=== PATIENT | male | born 1970 | race Hispanic/Latino ===

== ENCOUNTER 2019-07-20 15:00 | Inpatient (IN) | payer OTHER ==
[~2019-07-20] VITALS: Ht 179.1 cm; Wt 92.8 kg
[2020-02-04 16:22] LABS: BASOPHILS % (AUTO) 0.6 % (0.0-5.0); EOSINOPHILS % (AUTO) 2.5 % (0.0-8.0); HEMATOCRIT 37.2 % (42-54); LYMPHOCYTES % (AUTO) 27.7 % (21.0-51.0); MEAN CORPUSCULAR HEMOGLOBIN 30.7 pg (27.0-33.0); MEAN CORPUSCULAR VOLUME 95.9 fL (79-99); MONOCYTES % (AUTO) 9.2 % (3.0-13.0); NEUTROPHILS % (AUTO) 58.5 % (40.0-77.0); PLATELET COUNT (AUTO) 307 K/uL (130-400); RED BLOOD CELL COUNT(AUTO) 3.88 MIL/uL (4.50-6.20); RED CELL DISTRIBUTION WIDTH 14.3 % (11.0-15.5); WHITE BLOOD COUNT (AUTO) 7.2 K/uL (4.8-10.8)
[2020-02-04 16:33] LABS: CREATININE 1.2 mg/dL (0.5-1.5); INR 0.89 (0.85-1.15); POTASSIUM 4.7 mmol/L (3.5-5.1); PROTHROMBIN TIME 9.7 SEC (9.6-11.6)
[2020-02-04 16:41] LABS: APPEARANCE,URINE Clear (CLEAR); BILIRUBIN,URINE Negative (NEGATIVE); COLOR,URINE Yellow (YELLOW); GLUCOSE, URINE (UA) >=1000 mg/dL (NEGATIVE); KETONES,URINE Trace mg/dL (NEGATIVE); LEUKOCYTE ESTERASE ,URINE Negative (NEGATIVE); NITRATE,URINE Negative (NEGATIVE); OCCULT BLOOD,URINE Negative (NEGATIVE); PH,URINE 5.5 (5.0-8.0); PROTEIN,URINE Trace mg/dL (NEGATIVE)
[2020-02-04 16:53] LABS: BACTERIA,URINE Few /HPF (None Seen); MUCUS,URINE Few LPF (None Seen); SQUAMOUS EPITHELIAL CELL,UR 0-2 /HPF (0-2)
--- NOTE | 2020-02-08 12:30 | NUR ---
PATIENTS HEART RATE ON PRE-REGISTRATION 02/04/2020 WAS 111, TODAY HE STATED HE RAN OUT OF HIS PROPRANOLOL, INSTRUCTIONS FOR PATIENT TO GET MILDRED AND TAKE NOW DUE TO ELEVATED HEART RATE, PATIENT VERBALIZED UNDERSTANDING AND STATED HE WILL GO GET HIS PROPRANOLOL NOW AND TAKE IT
[2020-02-08 12:32] VITALS: BP 122/82
[2020-02-08] MEDS ORDERED: LISI40TA4 PO (12:43)
[2020-02-08] MEDS ORDERED: ATOR-2 PO (12:43)
[2020-02-08] MEDS ORDERED: METF750T46 PO (12:43)
[2020-02-08] MEDS ORDERED: INSU100V12 SQ (12:43)
--- NOTE | 2020-02-08 13:16 | NUR ---
RE: ABNORMAL UA INFORMED DR ASTORGA REGARDING ABNORMAL URINALYSIS, UWBC 2-5 AND ULEUKEST NEGATIVE. NO NEW ORDERS, PER DR ASTORGA OK TO PROCEED WITH SURGERY.
--- NOTE | 2020-02-08 15:00 | NUR ---
PATIENT CALLED BACK, STATED TO ME "I RECEIVED MY PROPRANOLOL AND TOOK IT A LITTLE WHILE AGO". HE STATED HE WILL BRING IN HIS MEDICATION BOTTLES IN THE MORNING
[2020-02-08] MEDS ORDERED: PROP20TA7 PO (15:02)
[2020-02-09] VITALS (22 sets, daily range): BP systolic 107–167; BP diastolic 66–87
[2020-02-09] MEDS: CEFAZOLIN SODIUM 1 GM VIAL IVP SCH ×3 (09:00→22:28)
[2020-02-09] MEDS ORDERED: SODIUM CHLORIDE 0.9% 1000ML 1,000 ML IV ONE (09:14)
--- NOTE | 2020-02-09 09:54 | NUR ---
POTENTIAL FOR INFECTION: CLIPPED LEFT HIP, LEFT GROIN AREA AND LEFT UPPER THIGH PER JEANNETTE ALVAREZ, FOLLOWED BY WIPING WITH CL[place]ON: 2% CHLORHEXIDINE GLUCONATE CLOTH PATIENTS PRE-OP SKIN PREP.
[2020-02-09] MEDS ORDERED: KETOROLAC TROMETHAMINE 15MG/ML ONE (12:08)
[2020-02-09] MEDS ORDERED: CELECOXIB 200 MG CAP ONE (12:08)
[2020-02-09] MEDS ORDERED: METOCLOPRAMIDE 10 MG/2 ML VIAL ONE (12:08)
[2020-02-09] MEDS ORDERED: ACETAMINOPHEN EXTRA STRENGTH 500 MG TABLET ONE (12:08)
[2020-02-09] MEDS ORDERED: CEFAZOLIN SODIUM 1 GM VIAL ONE (13:18)
[2020-02-09] MEDS ORDERED: LIDOCAINE PF 2% 5ML ABBOJECT ONE (13:23)
[2020-02-09] MEDS ORDERED: ONDANSETRON HCL 4 MG/2 ML VIAL ONE (13:23)
[2020-02-09] MEDS ORDERED: DEXAMETHASONE SOD PHOSPHATE 10MG/ML 1ML VIAL ONE (13:23)
[2020-02-09] MEDS ORDERED: PROPOFOL 10 MG/ML 20ML VIAL IV ONE (13:24)
[2020-02-09] MEDS ORDERED: ROCURONIUM 10MG/1ML SYR 10 MG/ML ML ONE ×4 (13:24→17:09)
[2020-02-09] MEDS ORDERED: MIDAZOLAM HCL 1 MG/ML 2ML VIAL ONE (13:24)
[2020-02-09] MEDS ORDERED: FENTANYL CITRATE PF 50 MCG/1 ML 2ML VIAL ONE (13:24)
[2020-02-09] MEDS ORDERED: TRANEXAMIC ACID 1000MG/10ML ONE (13:33)
[2020-02-09] MEDS ORDERED: ROPIVACAINE 0.5% 5MG/ML 30ML IJ ONE (14:21)
[2020-02-09] MEDS ORDERED: CEFAZOLIN SODIUM 1 GM VIAL IRRIG ONE (15:30)
[2020-02-09] MEDS ORDERED: PHENYLEPHRINE HCL 10 MG/ML 1ML VIAL IV ONE (16:55)
[2020-02-09] MEDS ORDERED: ALBUMIN (HUMAN) 5% 250 ML IV ONE (17:50)
[2020-02-09] MEDS ORDERED: POTASSIUM CHLORIDE 20 MEQ ERTAB PO PRN (18:00)
[2020-02-09] MEDS ORDERED: LIDOCAINE HCL-MPF 1% 2ML VIAL IV PRN (18:00)
[2020-02-09] MEDS ORDERED: CALCIUM CARBONATE 500 MG TABLET PO PRN (18:00)
[2020-02-09] MEDS ORDERED: ONDANSETRON HCL 4 MG/2 ML VIAL IVP PRN (18:00)
[2020-02-09] MEDS ORDERED: DiphenhydrAMINE HCL 50 MG/ML VIAL IVP PRN (18:00)
[2020-02-09] MEDS ORDERED: POTASSIUM CHLORIDE 10% ELIXIR 20 MEQ/15 ML UDCUP PO PRN (18:00)
[2020-02-09] MEDS ORDERED: POTASSIUM CHLORIDE 20MEQ/100ML 100 ML IV PRN (18:00)
[2020-02-09] MEDS ORDERED: FERROUS FUMARATE 324 MG TABLET PO PRN (18:00)
[2020-02-09] MEDS ORDERED: MEPERIDINE-PF 25 MG/ML SYG ONE (18:46)
[2020-02-09] MEDS ORDERED: MORPHINE SULFATE 2 MG/ML 1ML SYG ONE (19:06)
[2020-02-09] MEDS: KETOROLAC TROMETHAMINE 15MG/ML IV PRN (19:23)
[2020-02-09] MEDS: ACETAMINOPHEN EXTRA STRENGTH 500 MG TABLET PO SCH (19:42)
[2020-02-09] MEDS: OXYCODONE HCL 5 MG TAB PO PRN (19:43)
[2020-02-09] MEDS: PREGABALIN 25 MG CAP PO SCH (19:43)
[2020-02-09] MEDS: CELECOXIB 200 MG CAP PO SCH (19:43)
[2020-02-09] MEDS: FAMOTIDINE 20MG TAB 20 MG TAB PO SCH (19:43)
[2020-02-09] MEDS: ASPIRIN 81MG TAB.CHEW PO SCH (19:45)
[2020-02-09] MEDS: SODIUM CHLORIDE 0.9% 1000ML 1,000 ML IV SCH (19:51)
[2020-02-09] MEDS: ATORVASTATIN CALCIUM 40 MG TABLET PO SCH (21:00)
[2020-02-09] MEDS: PROPRANOLOL HCL 20 MG TAB PO SCH (21:00)
[2020-02-09] MEDS ORDERED: HYDROMORPHONE 1 MG/1 ML AMP ONE (22:24)
[2020-02-09] MEDS: TEMAZEPAM 15 MG CAPSULE PO PRN (22:28)
[2020-02-09] MEDS: HYDROMORPHONE HCL 2 MG/ML VIAL IVP PRN (23:42)
[2020-02-10] VITALS (7 sets, daily range): BP systolic 108–141; BP diastolic 70–92
[2020-02-10] MEDS: OXYCODONE HCL 5 MG TAB PO PRN ×4 (00:57→23:50)
[2020-02-10] MEDS: HYDROMORPHONE HCL 2 MG/ML VIAL IVP PRN ×3 (01:32→05:34)
[2020-02-10] MEDS: ACETAMINOPHEN EXTRA STRENGTH 500 MG TABLET PO SCH ×3 (01:33→18:36)
--- NOTE | 2020-02-10 02:02 | NUR ---
DANGLE PATIENT WAS ASSISTED TO EDGE OF BED TO DANGLE HIS LEGS PER PROTOCOL. PATIENT TOLERATED WELL AND WAS RETURNED TO BED.
[2020-02-10] MEDS: SODIUM CHLORIDE 0.9% 1000ML 1,000 ML IV SCH ×2 (03:30→15:32)
[2020-02-10 04:07] LABS: HEMATOCRIT 26.2 % (42-54); MEAN CORPUSCULAR HEMOGLOBIN 30.6 pg (27.0-33.0); MEAN CORPUSCULAR HGB CONC 31.7 g/dL (32.0-36.0); MEAN CORPUSCULAR VOLUME 96.7 fL (79-99); RED BLOOD CELL COUNT(AUTO) 2.71 MIL/uL (4.50-6.20); RED CELL DISTRIBUTION WIDTH 13.6 % (11.0-15.5); WHITE BLOOD COUNT (AUTO) 10.1 K/uL (4.8-10.8)
[2020-02-10 04:20] LABS: CREATININE 1.2 mg/dL (0.5-1.5); POTASSIUM 4.6 mmol/L (3.5-5.1)
[2020-02-10] MEDS: INSULIN HUMULIN R 100 UNIT/ML 3ML SQ SCH ×4 (05:22→21:00)
[2020-02-10] MEDS: CEFAZOLIN SODIUM 1 GM VIAL IVP SCH (06:50)
[2020-02-10] MEDS: METFORMIN HCL PO SCH ×2 (07:30→16:30)
[2020-02-10] MEDS: KETOROLAC TROMETHAMINE 15MG/ML IV PRN (07:39)
[2020-02-10] MEDS: INSULIN GLARGINE 100 UNITS/ML 10 ML VIAL SQ SCH ×2 (07:45→16:55)
[2020-02-10] MEDS ORDERED: METF-444 PO (07:54)
[2020-02-10] MEDS ORDERED: HYDROMORPHONE PCA 10 MG/50 ML 50 ML IV PRN (08:15)
[2020-02-10] MEDS ORDERED: NALOXONE HCL 0.4 MG/1 ML ML IVP PRN (08:15)
[2020-02-10] MEDS: ASPIRIN 81MG TAB.CHEW PO SCH ×2 (08:21→20:14)
[2020-02-10] MEDS: FAMOTIDINE 20MG TAB 20 MG TAB PO SCH ×2 (08:21→20:13)
[2020-02-10] MEDS: POLYETHYLENE GLYCOL 3350 17 GM POWD.PACK PO SCH (08:22)
[2020-02-10] MEDS: LISINOPRIL 40 MG TABLET PO SCH (08:23)
[2020-02-10] MEDS: PREGABALIN 25 MG CAP PO SCH ×2 (08:23→20:13)
[2020-02-10] MEDS: CELECOXIB 200 MG CAP PO SCH ×2 (08:24→20:13)
[2020-02-10] MEDS: PROPRANOLOL HCL 20 MG TAB PO SCH ×2 (08:24→20:13)
[2020-02-10] MEDS: TAMSULOSIN HCL 0.4 MG CAP.ER.24H PO SCH (08:24)
--- NOTE | 2020-02-10 11:34 | NUR ---
DC PLAN VISITED WITH PATIENT. PATIENT LIVES WITH SPOUSE. INDEPENDENT ABLE TO PERFORM ADL'S. PATIENT HAS NO SERVICES OR DME'S. FEELS SAFE TO RETURN HOME. PER PATIENT WILL LIKELY STAY WITH DAD IF HE CANT AT HOME. EXPLAINED MD RECOMMENDATIONS FOR HOME HEALTH AND DME. EXPLAINED THAT [facility] [employer]. VERBALIZED UNDERSTANDING AND GAVE PERMISSION TO SPEAK WITH [facility]. CALLED [facility] FAXED PER BK HYLTON RECEIVED. Addendum: 02/10/20 at 1136 by NATA MACKENZIE RN Amended: Links added.
[2020-02-10] MEDS: TRAMADOL HCL 50 MG TABLET PO PRN (16:55)
[2020-02-10] MEDS: ATORVASTATIN CALCIUM 40 MG TABLET PO SCH (20:14)
[2020-02-10] MEDS: TEMAZEPAM 15 MG CAPSULE PO PRN (20:48)
[2020-02-11] VITALS (7 sets, daily range): BP systolic 109–124; BP diastolic 48–74
[2020-02-11] MEDS: HYDROMORPHONE HCL 2 MG/ML VIAL IVP PRN ×2 (01:05→04:39)
[2020-02-11] MEDS: ACETAMINOPHEN EXTRA STRENGTH 500 MG TABLET PO SCH ×4 (01:05→18:39)
[2020-02-11] MEDS: METFORMIN HCL PO SCH ×2 (01:35→16:30)
[2020-02-11] MEDS: INSULIN HUMULIN R 100 UNIT/ML 3ML SQ SCH ×4 (07:30→20:26)
[2020-02-11] MEDS: INSULIN GLARGINE 100 UNITS/ML 10 ML VIAL SQ SCH ×2 (08:26→16:42)
[2020-02-11] MEDS: FAMOTIDINE 20MG TAB 20 MG TAB PO SCH ×2 (08:46→20:24)
[2020-02-11] MEDS: TAMSULOSIN HCL 0.4 MG CAP.ER.24H PO SCH (08:46)
[2020-02-11] MEDS: PREGABALIN 25 MG CAP PO SCH ×2 (08:46→20:24)
[2020-02-11] MEDS: PROPRANOLOL HCL 20 MG TAB PO SCH ×2 (08:46→20:25)
[2020-02-11] MEDS: CELECOXIB 200 MG CAP PO SCH ×2 (08:46→20:24)
[2020-02-11] MEDS: ASPIRIN 81MG TAB.CHEW PO SCH ×2 (08:46→20:25)
[2020-02-11] MEDS: LISINOPRIL 40 MG TABLET PO SCH (08:47)
[2020-02-11] MEDS: POLYETHYLENE GLYCOL 3350 17 GM POWD.PACK PO SCH (08:47)
--- NOTE | 2020-02-11 10:24 | NUR ---
DC PLAN SENT PT NOTES CALLED [facility] NO ANSWER LEFT MESSAGE FOR [facility]. Addendum: 02/11/20 at 1025 by NATA MACKENZIE RN CM Amended: Links added.
--- NOTE | 2020-02-11 11:09 | NUR ---
[facility] PL[facility] SPOKE TO [facility] RECEIVED PACKET WORKING ON IT. Addendum: 02/11/20 at 1110 by NATA MACKENZIE RN CM Amended: Links added.
[2020-02-11] MEDS: TRAMADOL HCL 50 MG TABLET PO PRN (14:48)
[2020-02-11] MEDS: OXYCODONE HCL 5 MG TAB PO PRN ×2 (16:07→20:25)
[2020-02-11] MEDS: ATORVASTATIN CALCIUM 40 MG TABLET PO SCH (20:25)
[2020-02-11] MEDS: TEMAZEPAM 15 MG CAPSULE PO PRN (20:25)
--- NOTE | 2020-02-12 | NUR ---
ROUNDS PATIENT TALKING IN SLEEP, STATES "I THREW UP ALL OVER MYSELF AND I NEED YOU TO HELP ME CLEAN IT UP?" REDIRECTED PATIENT THAT HE HAS NOT VOMITED AND REORIENTATED. NO COMPLAINTS OF PAIN VOICED AT THIS TIME. VITALS STABLE. AFEBRILE. [facility] DRESSING INTACT. NO LEAKS NOTED. CALL LIGHT WITHIN REACH. WILL CONTINUE TO BE OBSERVED. Addendum: 02/12/20 at 0631 by MAYCOL VILLAGOMEZ RN RN Amended: Links added.
[2020-02-12] MEDS: ACETAMINOPHEN EXTRA STRENGTH 500 MG TABLET PO SCH ×3 (01:23→17:27)
[2020-02-12 03:45] VITALS: BP 95/57
[2020-02-12] MEDS: INSULIN HUMULIN R 100 UNIT/ML 3ML SQ SCH ×4 (05:36→20:38)
[2020-02-12] MEDS: INSULIN GLARGINE 100 UNITS/ML 10 ML VIAL SQ SCH ×2 (06:04→17:24)
[2020-02-12] MEDS: KETOROLAC TROMETHAMINE 15MG/ML IV PRN (06:05)
[2020-02-12] MEDS: METFORMIN HCL PO SCH ×2 (06:05→16:30)
--- NOTE | 2020-02-12 06:10 | NUR ---
PATIENT COMPLAINS OF PAIN, WHEN ASKED PAIN SCORE FROM 0-10 PATIENT FALLS ASLEEP. WHEN PATIENT AWAKES HE STATES HE WANTS HIS WATER, REDIRECTED THAT WATER IN FRONT OF HIM. HE THEN FALLS ASLEEP AGAIN. LOW BP NOTED. TORADOL GIVEN PER [facility]. WILL CONTINUE TO BE OBSERVED. Addendum: 02/12/20 at 0635 by MAYCOL VILLAGOMEZ RN RN Amended: Links added.
[2020-02-12 08:05] VITALS: BP 98/65
[2020-02-12] MEDS: PREGABALIN 25 MG CAP PO SCH ×2 (08:37→20:01)
[2020-02-12] MEDS: CELECOXIB 200 MG CAP PO SCH ×2 (08:37→20:01)
[2020-02-12] MEDS: ASPIRIN 81MG TAB.CHEW PO SCH ×2 (08:38→20:02)
[2020-02-12] MEDS: LISINOPRIL 40 MG TABLET PO SCH (08:38)
[2020-02-12] MEDS: POLYETHYLENE GLYCOL 3350 17 GM POWD.PACK PO SCH (08:38)
[2020-02-12] MEDS: TAMSULOSIN HCL 0.4 MG CAP.ER.24H PO SCH (08:38)
[2020-02-12] MEDS: FAMOTIDINE 20MG TAB 20 MG TAB PO SCH ×2 (08:38→20:01)
[2020-02-12] MEDS: PROPRANOLOL HCL 20 MG TAB PO SCH ×2 (08:38→20:01)
[2020-02-12] MEDS: OXYCODONE HCL 5 MG TAB PO PRN ×2 (11:54→20:01)
[2020-02-12 12:29] VITALS: BP 105/65
[2020-02-12 16:14] VITALS: BP 105/67
[2020-02-12] MEDS ORDERED: BISACODYL 10 MG SUPP.RECT RC PRN (18:00)
[2020-02-12 19:45] VITALS: BP 124/72
[2020-02-12] MEDS: ATORVASTATIN CALCIUM 40 MG TABLET PO SCH (20:01)
[2020-02-12] MEDS: TEMAZEPAM 15 MG CAPSULE PO PRN (22:10)
[2020-02-12 23:56] VITALS: BP 108/70
[2020-02-13] MEDS: ACETAMINOPHEN EXTRA STRENGTH 500 MG TABLET PO SCH ×3 (02:48→17:04)
[2020-02-13 03:53] VITALS: BP 94/57
[2020-02-13] MEDS: OXYCODONE HCL 5 MG TAB PO PRN ×4 (05:17→21:10)
[2020-02-13] MEDS: INSULIN HUMULIN R 100 UNIT/ML 3ML SQ SCH ×4 (05:36→20:40)
[2020-02-13] MEDS: METFORMIN HCL PO SCH ×2 (07:30→16:30)
[2020-02-13 08:00] VITALS: BP 90/64
[2020-02-13] MEDS: CELECOXIB 200 MG CAP PO SCH ×2 (08:10→20:45)
[2020-02-13] MEDS: POLYETHYLENE GLYCOL 3350 17 GM POWD.PACK PO SCH (08:10)
[2020-02-13] MEDS: FAMOTIDINE 20MG TAB 20 MG TAB PO SCH ×2 (08:10→20:44)
[2020-02-13] MEDS: TAMSULOSIN HCL 0.4 MG CAP.ER.24H PO SCH (08:11)
[2020-02-13] MEDS: ASPIRIN 81MG TAB.CHEW PO SCH ×2 (08:11→20:45)
[2020-02-13] MEDS: LISINOPRIL 40 MG TABLET PO SCH (08:11)
[2020-02-13] MEDS: PROPRANOLOL HCL 20 MG TAB PO SCH ×2 (08:11→20:45)
[2020-02-13] MEDS: PREGABALIN 25 MG CAP PO SCH ×2 (08:19→21:48)
[2020-02-13] MEDS: INSULIN GLARGINE 100 UNITS/ML 10 ML VIAL SQ SCH ×2 (08:28→16:23)
[2020-02-13 11:00] VITALS: BP 94/60
--- NOTE | 2020-02-13 14:25 | NUR ---
ATTEMPTED TO AMBULATE PATIENT IN THE MORNING HOWEVER PATIENT DIFFICULT TO AROUSE AND REFUSED PT. JAKOB QUINONES, INFORMED SHE ATTEMPTED TO CONVINCE PATIENT TO WALK HOWEVER WAS UNSUCCESSFUL. Addendum: 02/13/20 at 1427 by SONAM CARREON PT Amended: Links added.
[2020-02-13 16:00] VITALS: BP 110/76
[2020-02-13 19:41] VITALS: BP 110/69
[2020-02-13] MEDS: ATORVASTATIN CALCIUM 40 MG TABLET PO SCH (20:45)
[2020-02-13] MEDS: TEMAZEPAM 15 MG CAPSULE PO PRN (21:53)
[2020-02-13 23:24] VITALS: BP 94/65
[2020-02-14] MEDS: ACETAMINOPHEN EXTRA STRENGTH 500 MG TABLET PO SCH ×2 (02:35→09:16)
[2020-02-14 03:18] VITALS: BP 105/66
[2020-02-14] MEDS: OXYCODONE HCL 5 MG TAB PO PRN ×3 (04:59→13:13)
[2020-02-14] MEDS: INSULIN HUMULIN R 100 UNIT/ML 3ML SQ SCH ×2 (05:32→11:57)
[2020-02-14] MEDS: METFORMIN HCL PO SCH (06:29)
[2020-02-14] MEDS: INSULIN GLARGINE 100 UNITS/ML 10 ML VIAL SQ SCH (06:32)
[2020-02-14 08:30] VITALS: BP 99/68
[2020-02-14] MEDS ORDERED: ASPI-1005 PO (08:59)
[2020-02-14] MEDS ORDERED: HYDR-4457 PO (08:59)
[2020-02-14] MEDS: LISINOPRIL 40 MG TABLET PO SCH (09:00)
[2020-02-14] MEDS: TAMSULOSIN HCL 0.4 MG CAP.ER.24H PO SCH (09:00)
[2020-02-14] MEDS: POLYETHYLENE GLYCOL 3350 17 GM POWD.PACK PO SCH (09:14)
[2020-02-14] MEDS: CELECOXIB 200 MG CAP PO SCH (09:17)
[2020-02-14] MEDS: ASPIRIN 81MG TAB.CHEW PO SCH (09:17)
[2020-02-14] MEDS: PROPRANOLOL HCL 20 MG TAB PO SCH (09:17)
[2020-02-14] MEDS: FAMOTIDINE 20MG TAB 20 MG TAB PO SCH (09:18)
[2020-02-14 11:36] VITALS: BP 109/64
--- NOTE | 2020-02-14 13:10 | NUR ---
[facility] PLAN CALLED [facility] SPOKE TO [facility]OMAS LOCKED OUT OF CHART. WILL CALL ME BACK AFTER 1. Addendum: 02/14/20 at 1311 by NATA MACKENZIE RN CM Amended: Links added.
[2020-02-14] MEDS: PREGABALIN 25 MG CAP PO SCH (13:11)
--- NOTE | 2020-02-14 14:43 | NUR ---
I HAVE UPDATED PT THAT WE ARE EXPECTING A CALL BACK FROM THE [place] [facility] AT 3:45PM; HE IS VERY ANXIOUS TO BE DISCHARGED HOME STATING HE WANTS TO LEAVE TODAY REGARDLESS IF SET UP OR NOT; I HAVE CHANGED [facility] DRESSING TO LEFT HIP IN PREPERATION FOR D/C; PT HAS A WELL APPROX. INC. LINE WITH ABSORBABLE SUTURES IN PLACE, SLIGHT REDNESS AND MOD. AMOUNT OF BRUISING, NO DRAINAGE; INC. LINE CLEANSED WITH BETADINE AND NEW [facility] DRESSING APPLIED; I HAVE INSTRUCTED PT ON HOW TO SHOWER WITH DRESSING IN PLACE--REMOVED BATTERY PACK AND REATTACH AFTER SHOWER---AND THAT THE DRESSING IS WATER PROOF; I HAVE ALSO GONE OVER WITH HIM SIGNS AND SYMPTOMS OF INFECTION TO WATCH FOR AND REPORT. PT STATES UNDERSTANDING OF ALL INSTRUCTIONS.
[2020-02-14 15:54] VITALS: BP 117/80
--- NOTE | 2020-02-14 15:55 | NUR ---
DC PLAN SPOKE TO BK SAID ASSIGNED TO [employer] [facility]. CALLED SPOKE TO MARTI SAID YES THEY HAD GOTTEN REFERRAL AND ACCEPTED PATIENT. FAXED PACKET TO [employer] [facility]. LET NURSE KNOW FOR NUMBER TO CALL REPORT. DME NOT YET READY ASKED [facility]NER IF OKAY TO LEND WALKER SAID YES. SPOKE TO PATIENT SAID DID NOT NEED. HAS WALKER AVAILABLE AT HOME. NURSE AWARE. Addendum: 02/14/20 at 1557 by NATA MACKENZIE RN CM Amended: Links added.
--- NOTE | 2020-02-14 16:23 | NUR ---
D/C REPORT CALLED AND FAXED TO RIVERA AT [facility].
== END 2020-02-14 16:30 | disposition home health service (06) | DRG 470 ==
LOC: EDSTATUS 15:00 → DAHIP 02-09 08:36 → 3DH 02-09 19:30
PROVIDERS: ADMIT Orthopaedic Surgery; ATTEND Orthopaedic Surgery
PROC: 0SRB0JZ Replacement of Left Hip Joint with Synthetic Substitute, Open Approach (ICD-10-PCS; principal; 2020-02-09 14:18)
DX: M87.852 Other osteonecrosis, left femur (principal); E11.9 Type 2 diabetes mellitus without complications; E78.5 Hyperlipidemia, unspecified; G89.29 Other chronic pain; I10 Essential (primary) hypertension; E66.9 Obesity, unspecified; S73.102A Unspecified sprain of left hip, initial encounter; Z68.28 Body mass index [BMI] 28.0-28.9, adult; Y93.89 Activity, other specified; Y92.89 Other specified places as the place of occurrence of the external cause; Y99.8 Other external cause status; Z83.3 Family history of diabetes mellitus
CPT/HCPCS: 36415; 73503; 80048; 81001; 82948; 85025; 85027; 85610; 87635; 87641; 96374; 96375; 97039; C1776; G0378; J0690; J1100; J1170; J1200; J1815; J1885; J2001; J2175; J2250; J2370; J2405; J2704; J2765; J2795; J3010; J3490; J7030; P9045